=== PATIENT | female | born 1965 | race Caucasian/White ===

== ENCOUNTER 2017-01-29 09:42 | Day surgery (SDC) | payer OTHER ==
[2017-01-27 13:18] VITALS: BMI 29.1
[2017-01-29] MEDS ORDERED: MIDAZOLAM HCL 2 MG/2 ML SINGLE DOSE VIAL ONE (10:16)
[2017-01-29] MEDS ORDERED: BUPIVACAINE HCL/PF 0.5% (5MG/ML) 10 ML VIAL ONE (10:30)
--- NOTE | 2017-01-29 10:34 | HP ---
History & Physical Update - History History: No Change - Physical Physical: No Change - Assessment Assessment: No Change - Plan Plan: No Change
[2017-01-29] MEDS ORDERED: oxyCODONE HCL 5 MG TABLET PO PRN (11:27)
[2017-01-29] MEDS ORDERED: ONDANSETRON 4 MG/2 ML VIAL IVPUSH PRN (11:27)
[2017-01-29] MEDS ORDERED: LACTATED RINGERS SOLUTION 1,000 ML IV SCH (11:30)
[2017-01-29] MEDS ORDERED: ceFAZolin SODIUM 1 GM VIAL IVPB ONE (11:30)
[2017-01-29] MEDS ORDERED: DESFLURANE GAS 240 ML BOTTLE IH ONE (12:24)
[2017-01-29] MEDS ORDERED: hydrALAZINE HCL 20 MG/ML VIAL ONE (13:26)
--- NOTE | 2017-01-29 14:08 | OP ---
Operative Note - Note: Operative Date: 01/29/17 Pre-Operative Diagnosis: incisional hernia Operation: laparoscopic incisional hernia repair with mesh, Lysis of adhesions Surgeon: Carlton De Dios Cooker Cleaner: Chana Hernandez Anesthesiologist/STUDIO OPERATION ENGINEER: Ric Escudero Anesthesia: General Estimated Blood Loss (mls): 20 Fluid Volume Replaced (mls): 1,000 Operative Report Dictated: Yes
--- NOTE | 2017-01-29 14:09 | SURG ---
Surgery Glazier Helper Note Glazier Helper: Chana Hernandez PA-C Date of Service: 01/29/17 Diagnosis: incisional hernia Procedure: laparoscopic incisional hernia repair with mesh, Lysis of adhesions I was present for the entirety of the operative procedure. For further detail, please refer to operative report. Visit type - Case Type Case Type: Scheduled Admission - Emergency Emergency Visit: No - New patient This patient is new to me today: Yes Date on this admission: 01/29/17
[2017-01-29 15:05] VITALS: TEMP 98.2
[2017-01-29] MEDS ORDERED: oxyCODONE HCL 5 MG TABLET ONE (15:27)
[2017-01-29 16:45] VITALS: BP 141/87; PULSE 75
--- NOTE | 2017-01-31 10:41 | OP ---
DATE OF OPERATION: 01/29/2017 PROCEDURE: Laparoscopic lysis of adhesions and incisional hernia repair with mesh. PREOPERATIVE DIAGNOSIS: Incisional hernia. POSTOPERATIVE DIAGNOSIS: Incisional hernia and intra-abdominal adhesions. SURGEON: Carlton De Dios MD GRADUATE ADVISOR: IVY Andrade ANESTHESIA: General endotracheal. FINDINGS AND PROCEDURE: This is a 51-year-old female who presents with a painful, partially reducible bulge of a midline abdominal scar following two laparotomies for peptic ulcer disease. On physical exam, the patient has a 6-cm defect at the level of the umbilicus which is the lower part of the upper midline incision. So, the patient was advised to have a preoperative CT scan which showed an incisional hernia containing loops of small bowel. The patient was advised to have repair of the hernia. Consent was obtained after discussion of the risks, benefits and alternatives to the procedure. The patient was brought to the operating room and placed in supine position. General endotracheal anesthesia was administered. The right arm was tucked to the side. The abdomen was prepped and draped in the usual sterile fashion. Using 0.5% Marcaine, local anesthesia was administered to the proposed incision site. The peritoneal cavity was entered using the Optiview technique via a 5-mm incision at the right subcostal region of the anterior axillary line. Pneumoperitoneum was established and the peritoneal cavity was carefully inspected. It was noted to be free of inadvertent injury. The 6- x 6-cm diameter incisional hernia was noted to be at the level of and below the umbilicus. Adhesions of the small bowel to the posterior abdominal wall were noted above the hernia defect. Two 5-mm ports were inserted at the right flank at the mid-axillary line level, one at the level of the umbilicus and one just anterior to the superior iliac spine. The right subcostal port was changed to a 12-mm port. Using the laparoscopic alo connected to monopolar cautery, the omental adhesions to the posterior abdominal wall above the hernia defect were taken down, up to about 5 cm away from the superior margin of the hernia defect. The abdominal wall defect was then opposed with two 0 Vicryl sutures in figure-of-8 fashion using the suture passer technique. Afterwards, a 6-x-[address] PS Echo mesh was deployed and anchored to the posterior abdominal wall using an absorbable tacker. After the deployment was deemed satisfactory, the pneumoperitoneum was evacuated and the ports were removed. The wounds were closed with subcuticular Biosyn 4-0 sutures reinforced with Dermabond. A pressure dressing was then applied on the area of the hernia to prevent seroma formation. The patient was successfully extubated and transferred to the postanesthesia care unit in satisfactory condition. Estimated blood loss was about 3 mL. Wound class clean. The patient received 2 g of Ancef prior to the start of the procedure. Fredi [id number]
== END 2017-01-29 16:20 | disposition short-term general hospital (02) ==
LOC: JASU-SURG 09:42
PROVIDERS: ATTEND Surgery
PROC: 0WUF4JZ Supplement Abdominal Wall with Synthetic Substitute, Percutaneous Endoscopic Approach (ICD-10-PCS; principal; 2017-01-29 11:00)
DX: K43.2 Incisional hernia without obstruction or gangrene (principal)
CPT/HCPCS: 86850; 86900; 86901

== ENCOUNTER → 2017-12-08 | Day surgery (SDC) | payer OTHER | END | disposition home or self-care (01) | LOC: JRADIR 11:25 | PROVIDERS: ATTEND Surgery | PROC: BW11YZZ Fluoroscopy of Abdomen and Pelvis using Other Contrast (ICD-10-PCS; principal; 2017-12-08) | DX: K63.2 Fistula of intestine (principal) | CPT/HCPCS: 76080-TC-FY; C1887 ==

== ENCOUNTER 2018-08-26 06:21 | Day surgery (SDC) | payer OTHER | END 2018-08-26 11:30 | LOC: JASU-SURG 06:21 ==